=== PATIENT | female | born 1990 | race Hispanic/Latino ===

== ENCOUNTER 2019-06-02 23:58 | Inpatient (IN) | payer OTHER ==
[2019-06-03] VITALS (20 sets, daily range): BP systolic 97–121; BP diastolic 56–76
[2019-06-03] MEDS ORDERED: DICYCLOMINE HCL 10 MG/ML 2ML AMP IM ONE (00:23)
[2019-06-03] MEDS ORDERED: ONDANSETRON HCL 4 MG/2 ML VIAL ONE ×3 (00:23→17:56)
[2019-06-03] MEDS ORDERED: SODIUM CHLORIDE 0.9% 1000ML 1,000 ML IV ONE ×2 (00:24→02:10)
[2019-06-03 00:27] LABS: MEAN CORPUSCULAR VOLUME 91.2 fL (79-99)
[2019-06-03 00:44] LABS: CREATININE 0.7 mg/dL (0.5-1.5); POTASSIUM 3.6 mmol/L (3.5-5.1)
[2019-06-03 00:49] LABS: ALBUMIN 4.3 g/dL (3.5-5.0); BILIRUBIN,TOTAL 0.4 mg/dL (0.2-1.0); TOTAL PROTEIN, SERUM 8.5 g/dL (6.0-8.3)
[2019-06-03 00:51] LABS: BASOPHILS % (AUTO) 0.2 % (0.0-5.0); EOSINOPHILS % (AUTO) 0.3 % (0.0-8.0); HEMATOCRIT 44.8 % (36-48); LYMPHOCYTES % (AUTO) 14.5 % (21.0-51.0); MEAN CORPUSCULAR HGB CONC 35.1 g/dL (32.0-36.0); MONOCYTES % (AUTO) 3.6 % (3.0-13.0); NEUTROPHILS % (AUTO) 81.4 % (40.0-77.0); PLATELET COUNT (AUTO) 339 K/uL (130-400); RED BLOOD CELL COUNT(AUTO) 4.91 MIL/uL (4.00-5.50); RED CELL DISTRIBUTION WIDTH 12.1 % (11.0-15.5); WHITE BLOOD COUNT (AUTO) 18.4 K/uL (4.8-10.8)
[2019-06-03] MEDS ORDERED: KETOROLAC TROMETHAMINE 30MG/ML ONE (01:23)
[2019-06-03 01:45] LABS: APPEARANCE,URINE Clear (CLEAR); BILIRUBIN,URINE Negative (NEGATIVE); COLOR,URINE Yellow (YELLOW); GLUCOSE, URINE (UA) Negative (NEGATIVE); KETONES,URINE 40 mg/dL (NEGATIVE); LEUKOCYTE ESTERASE ,URINE Trace (NEGATIVE); NITRATE,URINE Negative (NEGATIVE); OCCULT BLOOD,URINE Negative (NEGATIVE); PROTEIN,URINE Trace mg/dL (NEGATIVE)
[2019-06-03 01:53] LABS: AMPHET/METH SCREEN,URINE NEGATIVE (NEGATIVE); BARBITURATE SCREEN, URINE NEGATIVE (NEGATIVE); BENZODIAZEPINES SCREEN,URINE NEGATIVE (NEGATIVE); CANNABINOID SCREEN,URINE NEGATIVE (NEGATIVE); COCAINE SCREEN,URINE NEGATIVE (NEGATIVE); OPIATE SCREEN,URINE NEGATIVE (NEGATIVE); PHENCYCLIDINE SCREEN,URINE NEGATIVE (NEGATIVE)
[2019-06-03 01:55] LABS: BACTERIA,URINE Few /HPF (None Seen); MUCUS,URINE Few LPF (None Seen); RBC,URINE 0-1 /HPF (0-1)
[2019-06-03] MEDS ORDERED: IOHEXOL-350 75 ML VIAL IV ONE (02:30)
[2019-06-03] MEDS ORDERED: ZOSYN 3.375GM+NS 50ML 50 ML IV ONE (04:24)
[2019-06-03] MEDS ORDERED: DEXTROSE 5 % AND 0.9 % NACL 1,000 ML IV ONE (04:26)
[2019-06-03] MEDS ORDERED: KETOROLAC TROMETHAMINE 30MG/ML IV PRN (04:30)
[2019-06-03] MEDS ORDERED: DEXTROSE 5 % AND 0.9 % NACL 1,000 ML IV SCH (04:30)
[2019-06-03] MEDS: ZOSYN 3.375GM+NS 50ML 50 ML IV SCH ×3 (05:00→21:38)
[2019-06-03] MEDS: MORPHINE SULFATE 2 MG/ML 1ML SYG IVP PRN ×3 (06:09→14:37)
[2019-06-03] MEDS: ONDANSETRON HCL 4 MG/2 ML VIAL IVP PRN ×2 (10:43→14:37)
--- NOTE | 2019-06-03 11:16 | NUR ---
DCP CM met with pt discussed dc plans. Pt is independent prior to admission, lives at home with sister and children. Denies any equipments/services. Feels safe to go back home, still drives, sister able to assist with transportation and needs as necessary. Pt is a self pay, [facility] assisting, given [employer] packet. DC plan to home once stable. CM to cont to follow up. Addendum: 06/03/19 at 1117 by ULISES FINE LVN CM Amended: Links added.
[2019-06-03] MEDS ORDERED: SUCCINYLCHOLINE 200MG/10ML SYR ONE ×3 (13:39→17:57)
[2019-06-03] MEDS ORDERED: LIDOCAINE PF 2% 5ML ABBOJECT ONE ×2 (13:39→17:55)
[2019-06-03] MEDS ORDERED: DEXAMETHASONE SOD PHOSPHATE 10MG/ML 1ML VIAL ONE (13:40)
[2019-06-03] MEDS ORDERED: MIDAZOLAM HCL 1 MG/ML 2ML VIAL ONE ×2 (13:40→17:55)
[2019-06-03] MEDS ORDERED: GLYCOPYRROLATE 1 MG/5 ML SYRINGE ONE ×2 (13:40→19:01)
[2019-06-03] MEDS ORDERED: ROCURONIUM 10MG/1ML SYR 10 MG/ML ML ONE ×2 (13:41→17:55)
[2019-06-03] MEDS ORDERED: PROPOFOL 10 MG/ML 20ML VIAL IV ONE ×2 (13:41→17:55)
[2019-06-03] MEDS ORDERED: FENTANYL CITRATE PF 50 MCG/1 ML 2ML VIAL ONE ×2 (13:42→17:56)
[2019-06-03] MEDS ORDERED: BUPIVACAINE/PF 0.25% 30ML VIAL IJ ONE (17:32)
[2019-06-03] MEDS ORDERED: BUPIVACAINE/PF 0.5% 30ML VIAL ONE (17:33)
[2019-06-03] MEDS ORDERED: NEOSTIGMINE 5MG/5ML SYR IV ONE (19:01)
[2019-06-03] MEDS ORDERED: SODIUM CHLORIDE 0.9% 1000ML 1,000 ML IV SCH (19:11)
[2019-06-03] MEDS ORDERED: ONDANSETRON HCL 4 MG/2 ML VIAL IVP PRN (19:15)
[2019-06-03] MEDS ORDERED: MORPHINE SULFATE 4 MG/1ML SYG IV PRN (19:15)
--- NOTE | 2019-06-03 20:15 | NUR ---
PATIENT TRANSFERRED BACK TO ROOM S/P ERICA FAJARDO BY DR. RAZA. PATIENT DROWSY FROM ANESTHESIA, BUT EASILY AROUSABLE TO VERBAL STIMULI. PATIENT TO REMAIN NPO FOR NOW, BUT MAY START ON CLEAR LIQUID DIET FOR BREAKFAST TOMORROW. ABDOMEN WITH X3 SURGICAL INCISIONS, COVERED WITH SMALL GAUZE AND COVERED WITH TEGADERM DRESSINGS, NO DRAINAGE NOTED. ABDOMEN DISTENDED, PATIENT DENIES DISCOMFORT, WITH ONLY MILD TENDERNESS ON PALPATION, NO ACTIVE BOWEL SOUNDS PRESENT YET. NO ACUTE DISTRESS NOTED. WILL CONTINUE TO MONITOR.
[2019-06-03] MEDS: METRONIDAZOLE 500MG/100ML BAG 100 ML IVPB SCH (20:20)
[2019-06-04] VITALS: BP 98/56
[2019-06-04] MEDS: METRONIDAZOLE 500MG/100ML BAG 100 ML IVPB SCH (03:02)
[2019-06-04 03:44] VITALS: BP 93/56
[2019-06-04 05:14] LABS: BASOPHILS % (AUTO) 0.1 % (0.0-5.0); HEMATOCRIT 37.6 % (36-48); LYMPHOCYTES % (AUTO) 6.9 % (21.0-51.0); MEAN CORPUSCULAR HEMOGLOBIN 32.4 pg (27.0-33.0); MEAN CORPUSCULAR HGB CONC 35.6 g/dL (32.0-36.0); MEAN CORPUSCULAR VOLUME 90.8 fL (79-99); MONOCYTES % (AUTO) 2.6 % (3.0-13.0); NEUTROPHILS % (AUTO) 90.4 % (40.0-77.0); PLATELET COUNT (AUTO) 273 K/uL (130-400); RED BLOOD CELL COUNT(AUTO) 4.15 MIL/uL (4.00-5.50); RED CELL DISTRIBUTION WIDTH 12.2 % (11.0-15.5); WHITE BLOOD COUNT (AUTO) 15.6 K/uL (4.8-10.8)
--- NOTE | 2019-06-04 05:15 | NUR ---
PATIENT AAOX3, HAS DENIED PAIN AND/OR N/V THROUGHOUT SHIFT. NO ACTIVE BOWEL SOUNDS OR PASSING GAS YET, BUT WALKED X2 AROUND NURSE'S STATION. WILL CONTINUE TO MONITOR.
[2019-06-04 05:36] LABS: CREATININE 0.6 mg/dL (0.5-1.5); POTASSIUM 3.8 mmol/L (3.5-5.1)
[2019-06-04] MEDS: ZOSYN 3.375GM+NS 50ML 50 ML IV SCH ×2 (05:59→12:49)
[2019-06-04 07:53] VITALS: BP 102/60
[2019-06-04 11:19] VITALS: BP 100/60
[2019-06-04 12:00] VITALS: BP 100/60
[2019-06-04] MEDS ORDERED: ACETAMINOPHEN 325 MG TAB PO SCH (14:00)
--- NOTE | 2019-06-04 14:50 | NUR ---
PER PATIENT'S ADMISSION DATABASE, SHE ALREADY REC'D FLU SHOT IN MARCH 2019. Addendum: 06/04/19 at 1453 by HARSHA MASSEY RN RN Amended: Links added.
[2019-06-04 16:00] VITALS: BP 101/60
== END 2019-06-04 17:09 | disposition home or self-care (01) | DRG 343 ==
LOC: EDH 23:58 → EDHIP 23:59 → 3AH 06-03 04:19
PROVIDERS: ADMIT Student in an Organized Health Care Education/Training Program; ATTEND Student in an Organized Health Care Education/Training Program
PROC: 0DTJ4ZZ Resection of Appendix, Percutaneous Endoscopic Approach (ICD-10-PCS; principal; 2019-06-03 18:09)
DX: K35.80 Unspecified acute appendicitis (principal); D72.829 Elevated white blood cell count, unspecified
CPT/HCPCS: 36415; 74177; 76705; 80048; 80053; 80305; 81001; 83690; 84702; 85025; G0378; J0330; J0500; J1100; J1885; J2001; J2250; J2405; J2543; J2704; J2710; J3010; J3490; J7030; J7042; Q9967

== ENCOUNTER 2020-05-02 21:44 | Emergency (ER) | payer BC, MEDICAID ==
[2020-05-02] MEDS ORDERED: SODIUM CHLORIDE 0.9% 1000ML 1,000 ML IV ONE (22:47)
[2020-05-02 23:02] LABS: BASOPHILS % (AUTO) 0.5 % (0.0-5.0); HEMATOCRIT 39.6 % (36-48); LYMPHOCYTES % (AUTO) 26.5 % (21.0-51.0); MEAN CORPUSCULAR HEMOGLOBIN 32.1 pg (27.0-33.0); MEAN CORPUSCULAR HGB CONC 36.1 g/dL (32.0-36.0); MONOCYTES % (AUTO) 6.6 % (3.0-13.0); NEUTROPHILS % (AUTO) 64.9 % (40.0-77.0); PLATELET COUNT (AUTO) 286 K/uL (130-400); RED BLOOD CELL COUNT(AUTO) 4.45 MIL/uL (4.00-5.50); RED CELL DISTRIBUTION WIDTH 11.7 % (11.0-15.5)
[2020-05-02 23:18] LABS: CREATININE 0.8 mg/dL (0.5-1.5); INR 0.93 (0.85-1.15); PARTIAL THROMBOPLASTIN TIME 25.2 SEC (26.3-35.5); POTASSIUM 3.7 mmol/L (3.5-5.1); PROTHROMBIN TIME 10.1 SEC (9.6-11.6)
[2020-05-02 23:22] LABS: ALBUMIN 3.6 g/dL (3.5-5.0); BILIRUBIN,TOTAL 0.2 mg/dL (0.2-1.0); TOTAL PROTEIN, SERUM 7.4 g/dL (6.0-8.3)
[2020-05-03 00:01] LABS: APPEARANCE,URINE Clear (CLEAR); BILIRUBIN,URINE Negative (NEGATIVE); COLOR,URINE Yellow (YELLOW); GLUCOSE, URINE (UA) Negative (NEGATIVE); KETONES,URINE Negative (NEGATIVE); LEUKOCYTE ESTERASE ,URINE Negative (NEGATIVE); NITRATE,URINE Negative (NEGATIVE); OCCULT BLOOD,URINE Negative (NEGATIVE); PH,URINE 5.5 (5.0-8.0); PROTEIN,URINE Negative (NEGATIVE)
[2020-05-03 00:02] LABS: HCG,QUAL RESULT NEGATIVE (NEGATIVE)
[2020-05-03] MEDS ORDERED: ONDANSETRON HCL 4 MG/2 ML VIAL ONE (00:22)
[2020-05-03] MEDS ORDERED: KETOROLAC TROMETHAMINE 30MG/ML ONE (00:22)
== END 2020-05-03 00:50 | disposition home or self-care (01) ==
LOC: EDH 21:44
DX: K80.80 Other cholelithiasis without obstruction (principal); R11.2 Nausea with vomiting, unspecified; M54.6 Pain in thoracic spine
CPT/HCPCS: 36415; 76705; 80053; 81003; 81025; 82550; 83690; 84484; 85025; 85610; 85730; 93005; 96361; 96374; 96375; 99285; J1885; J2405; J7030

== ENCOUNTER 2020-06-11 06:51 | Day surgery (SDC) | payer BC, MEDICAID ==
[2020-06-07 13:00] VITALS: BP 115/71
[2020-06-07 13:41] LABS: BASOPHILS % (AUTO) 0.4 % (0.0-5.0); EOSINOPHILS % (AUTO) 1.9 % (0.0-8.0); HEMATOCRIT 43.2 % (36-48); LYMPHOCYTES % (AUTO) 34.8 % (21.0-51.0); MEAN CORPUSCULAR HEMOGLOBIN 31.8 pg (27.0-33.0); MEAN CORPUSCULAR HGB CONC 36.1 g/dL (32.0-36.0); MONOCYTES % (AUTO) 6.9 % (3.0-13.0); NEUTROPHILS % (AUTO) 55.6 % (40.0-77.0); PLATELET COUNT (AUTO) 307 K/uL (130-400); RED BLOOD CELL COUNT(AUTO) 4.91 MIL/uL (4.00-5.50); RED CELL DISTRIBUTION WIDTH 11.9 % (11.0-15.5); WHITE BLOOD COUNT (AUTO) 8.6 K/uL (4.8-10.8)
[2020-06-07 13:47] LABS: CREATININE 0.6 mg/dL (0.5-1.5); POTASSIUM 3.8 mmol/L (3.5-5.1)
[2020-06-07 13:52] LABS: INR 0.9 (0.85-1.15); PARTIAL THROMBOPLASTIN TIME 25.4 SEC (26.3-35.5); PROTHROMBIN TIME 9.8 SEC (9.6-11.6)
[2020-06-08] MEDS: CEFAZOLIN SODIUM 1 GM VIAL IVP SCH (08:00)
[2020-06-11] VITALS (17 sets, daily range): BP systolic 107–129; BP diastolic 57–80
[~2020-06-11] VITALS: Ht 152.4 cm; Wt 65.8 kg
[2020-06-11] MEDS ORDERED: BUPIVACAINE/PF 0.5% 30ML VIAL ONE (07:34)
[2020-06-11] MEDS ORDERED: LACTATED RINGERS 1000ML 1,000 ML IV ONE (07:54)
[2020-06-11] MEDS ORDERED: SUCCINYLCHOLINE 200MG/10ML SYR ONE (08:12)
[2020-06-11] MEDS ORDERED: MIDAZOLAM HCL 1 MG/ML 2ML VIAL ONE (08:12)
[2020-06-11] MEDS ORDERED: DEXAMETHASONE SOD PHOSPHATE 10MG/ML 1ML VIAL ONE (08:12)
[2020-06-11] MEDS ORDERED: PROPOFOL 10 MG/ML 20ML VIAL IV ONE ×2 (08:12→09:07)
[2020-06-11] MEDS ORDERED: LIDOCAINE PF 2% 5ML ABBOJECT ONE (08:12)
[2020-06-11] MEDS ORDERED: ONDANSETRON HCL 4 MG/2 ML VIAL ONE (08:12)
[2020-06-11] MEDS ORDERED: ROCURONIUM 10MG/1ML SYR 10 MG/ML ML ONE (08:12)
[2020-06-11] MEDS ORDERED: FENTANYL CITRATE PF 50 MCG/1 ML 2ML VIAL ONE (08:12)
[2020-06-11] MEDS: CEFAZOLIN SODIUM 1 GM VIAL IVP SCH (08:30)
[2020-06-11] MEDS ORDERED: GLYCOPYRROLATE 1 MG/5 ML SYRINGE ONE (09:27)
[2020-06-11] MEDS ORDERED: NEOSTIGMINE 5MG/5ML SYR IV ONE (09:27)
[2020-06-11] MEDS ORDERED: KETOROLAC TROMETHAMINE 15MG/ML ONE (10:01)
[2020-06-11] MEDS ORDERED: MEPERIDINE-PF 25 MG/ML SYG ONE ×2 (10:02→10:21)
--- NOTE | 2020-06-11 11:23 | NUR ---
LATE ENTRY PATIENT C/O OF PAIN 10/06 HOWEVER PATIENT WAS SLEEPY AND DROWSY AT THIS TIME, I EXPLAINED TO PATIENT AND SPOUSE TO START WITH MOTRIN 800MG PO SOON SHE GOT HOME AND IF SHE CONTINUED WITH PAIN, TO CALL MD OFFICE, NO CONCERNS AFTER.
== END 2020-06-11 11:30 | disposition home or self-care (01) ==
LOC: DAH 06:51
PROVIDERS: ATTEND Surgery
DX: K80.13 Calculus of gallbladder with acute and chronic cholecystitis with obstruction (principal); Z20.828 Contact with and (suspected) exposure to other viral communicable diseases; E66.9 Obesity, unspecified; Z90.49 Acquired absence of other specified parts of digestive tract; Z83.3 Family history of diabetes mellitus; Z82.49 Family history of ischemic heart disease and other diseases of the circulatory system; Z82.0 Family history of epilepsy and other diseases of the nervous system; Z87.19 Personal history of other diseases of the digestive system; Z68.28 Body mass index [BMI] 28.0-28.9, adult
CPT/HCPCS: 36415; 47562; 80048; 84703; 85025; 85610; 85730; A4215; A4221; A4222; A4223; A4600; A4649; A4657; A4663; A6260; C1769 ×2; C9803; G0168; J0330; J0690; J1100; J1885; J2001; J2175 ×2; J2250; J2405; J2704 ×2; J2710; J3010; J3490 ×2; J7030; J7120 ×2; S2900; U0003

== ENCOUNTER 2023-02-16 05:58 | Day surgery (SDC) | payer BC, MEDICAID ==
[2023-02-10 13:05] LABS: BASOPHILS # (AUTO) 0.04 K/uL (0.00-0.20); BASOPHILS % (AUTO) 0.4 % (0.0-5.0); EOSINOPHILS # (AUTO) 0.12 K/uL (0.00-0.70); EOSINOPHILS % (AUTO) 1.3 % (0.0-8.0); HEMATOCRIT 43.2 % (36-48); IMMATURE GRANULOCYTE ABSOLUTE 0.04 K/uL (0-1); LYMPHOCYTES # (AUTO) 3.4 K/uL (1.0-4.8); LYMPHOCYTES % (AUTO) 36.3 % (21.0-51.0); MEAN CORPUSCULAR HEMOGLOBIN 31.7 pg (27.0-33.0); MEAN CORPUSCULAR HGB CONC 35.9 g/dL (32.0-36.0); MEAN CORPUSCULAR VOLUME 88.3 fL (79-99); MONOCYTES # (AUTO) 0.5 K/uL (0.1-1.0); MONOCYTES % (AUTO) 5.3 % (3.0-13.0); NEUTROPHILS # (AUTO) 5.2 K/uL (1.8-7.7); NEUTROPHILS % (AUTO) 56.3 % (40.0-77.0); PLATELET COUNT (AUTO) 315 K/uL (130-400); RED BLOOD CELL COUNT(AUTO) 4.89 MIL/uL (4.00-5.50); RED CELL DISTRIBUTION WIDTH 11.8 % (11.0-15.5); WHITE BLOOD COUNT (AUTO) 9.2 K/uL (4.8-10.8)
[2023-02-10 13:28] VITALS: BP 114/80; PULSE 67; RESP 18
[2023-02-16] VITALS (19 sets, daily range): BP systolic 103–131; BP diastolic 60–88; PULSE 69–110; RESP 11–17
[~2023-02-16] VITALS: Ht 152.4 cm; Wt 64.6 kg
[~2023-02-16 05:58] MED LIST: IBUP-2077 PO
[2023-02-16] MEDS ORDERED: LACTATED RINGERS 1000ML 1,000 ML IV ONE (06:24)
[2023-02-16] MEDS ORDERED: CALDOLOR 800MG+NS 250ML 250 ML IV ONE (06:30)
[2023-02-16] MEDS ORDERED: PROPOFOL 10 MG/ML 20ML VIAL IV ONE (06:42)
[2023-02-16] MEDS ORDERED: DEXAMETHASONE SOD PHOSPHATE 10MG/ML 1ML VIAL ONE (06:42)
[2023-02-16] MEDS ORDERED: GLYCOPYRROLATE 1 MG/5 ML SYRINGE ONE (06:42)
[2023-02-16] MEDS ORDERED: LIDOCAINE PF 100MG/5ML (2%) SYRINGE 5ML ONE (06:42)
[2023-02-16] MEDS ORDERED: MIDAZOLAM HCL 1 MG/ML 2ML VIAL ONE (06:42)
[2023-02-16] MEDS ORDERED: SUCCINYLCHOLINE CHLORIDE 20 MG/ML 10 ML VIAL ONE (06:42)
[2023-02-16] MEDS ORDERED: ONDANSETRON 4MG INJ ONE (06:42)
[2023-02-16] MEDS ORDERED: NEOSTIGMINE 5MG/5ML SYR IV ONE (06:43)
[2023-02-16] MEDS ORDERED: ROCURONIUM 10MG/1ML SYR 10 MG/ML ML ONE (06:43)
[2023-02-16] MEDS ORDERED: FENTANYL CITRATE PF 50 MCG/1 ML 2ML VIAL ONE ×2 (06:43→07:32)
[2023-02-16] MEDS: CEFAZOLIN SODIUM 2 GM VIAL ONE ×2 (07:22→08:03)
[2023-02-16] MEDS ORDERED: BUPIVACAINE/EPI/PF 0.25% 10ML VIAL IJ ONE (07:40)
== END 2023-02-16 10:00 | disposition home or self-care (01) ==
LOC: DAH 05:58
PROVIDERS: ATTEND Obstetrics & Gynecology
DX: R10.2 Pelvic and perineal pain (principal); Z20.822 Contact with and (suspected) exposure to COVID-19; N83.201 Unspecified ovarian cyst, right side; N81.4 Uterovaginal prolapse, unspecified; J45.909 Unspecified asthma, uncomplicated; F32.A Depression, unspecified; Z98.890 Other specified postprocedural states; Z90.49 Acquired absence of other specified parts of digestive tract; Z82.49 Family history of ischemic heart disease and other diseases of the circulatory system; Z72.89 Other problems related to lifestyle; Z83.49 Family history of other endocrine, nutritional and metabolic diseases
CPT/HCPCS: 84703; 85025; 86850 ×2; 86900 ×2; 86901 ×2; 36415 ×2; 49320; 86923; 81025; A6260; J7030; J7120 ×2; A4351; J3010 ×2; J3490 ×2; J1100; J2710; J0330; J2001; J2250; J2704; J2405; J1741; J0690; C1769 ×2; A4649; A4215; A4223; A4222; A4221; A4663; A4335 ×2; A4600